=== PATIENT | female | born 2005 | race Hispanic/Latino ===

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

== ENCOUNTER 2024-02-18 14:03 | Outpatient (CLI) | payer BC, OTHER | END 2024-02-18 14:04 | disposition home or self-care (01) | LOC: ULT 14:03 | PROVIDERS: ATTEND Student in an Organized Health Care Education/Training Program | DX: R79.89 Other specified abnormal findings of blood chemistry (principal) | CPT/HCPCS: 76536 ==